=== PATIENT | male | born 1955 | race Caucasian/White ===

== ENCOUNTER → 2016-07-06 | Outpatient (CLI) | payer OTHER ==
[~2016-07-06] MED LIST: COREG CR80 MG PO; DILTIAZEM 24HR240 MG PO; ECOTRIN81 MG PO; FLOMAX0.4 MG PO; FLOVENT DISKUS50 MCG INH; FOLIC ACID0.4 MG PO; LOSARTAN-HCTZ1 EACH PO; METFORMIN HCL1000 MG PO; OMEPRAZOLE40 MG PO; PERCOCET 5-3251 EACH PO; PLAQUENIL 200200 MG PO; PRAVASTATIN SOD80 MG PO; PREDNISONE5 MG PO; TYLENOL EXTRA500 MG PO; VITAMIN D2000 UNI1 PO
== END ==
LOC: HEART 5 13:22
DX: R00.1 Bradycardia, unspecified (principal); I10 Essential (primary) hypertension

== ENCOUNTER → 2020-08-02 | Outpatient (CLI) | payer MEDICARE, OTHER ==
[~2020-08-02] MED LIST changes: +ACTOS30 MG PO; +CENTRUM SILVER1 EAC1 PO; +COZAAR 25MG TAB25 MG PO; -DILTIAZEM 24HR240 MG PO; +DILTIAZEM 24HR360 MG PO; +HYDROCHLOROTH12.5 M1 PO; +LASIX40 MG PO; +NEXIUM20 MG PO; +POTASSIUM CHLO20 ME1 PO; +VITAMIN B-121000 MCG PO; +ZYLOPRIM 100 M100 MG PO
== END ==
LOC: EXRD 08:38
DX: I10 Essential (primary) hypertension (principal); E11.9 Type 2 diabetes mellitus without complications; E78.00 Pure hypercholesterolemia, unspecified; I63.81 Other cerebral infarction due to occlusion or stenosis of small artery; R29.818 Other symptoms and signs involving the nervous system; R90.82 White matter disease, unspecified; I65.23 Occlusion and stenosis of bilateral carotid arteries
CPT/HCPCS: 93880

== ENCOUNTER → 2020-08-29 | Outpatient (CLI) | payer MEDICARE | LOC: HEART 5 08-19 11:00 | DX: I11.9 Hypertensive heart disease without heart failure (principal); R93.1 Abnormal findings on diagnostic imaging of heart and coronary circulation; I08.3 Combined rheumatic disorders of mitral, aortic and tricuspid valves | CPT/HCPCS: 93306 ==

== ENCOUNTER → 2020-11-18 | Outpatient (CLI) | payer MEDICARE, OTHER | LOC: US 10:26 | DX: D64.9 Anemia, unspecified (principal) | CPT/HCPCS: 76882 ==

== ENCOUNTER → 2020-12-25 | Outpatient (CLI) | payer MEDICARE, OTHER | LOC: EXRD 14:30 | DX: M25.562 Pain in left knee (principal); M25.561 Pain in right knee; M19.90 Unspecified osteoarthritis, unspecified site; R93.6 Abnormal findings on diagnostic imaging of limbs | CPT/HCPCS: 73564 ==

== ENCOUNTER → 2021-02-03 | Outpatient (CLI) | payer MEDICARE, OTHER | LOC: HEART 5 07:30 | DX: Z01.810 Encounter for preprocedural cardiovascular examination (principal); R94.39 Abnormal result of other cardiovascular function study | CPT/HCPCS: 78452; A9502; J2785 ==

== ENCOUNTER → 2021-03-03 | Outpatient (CLI) | payer MEDICARE, OTHER ==
[2021-03-03 13:03] LABS: HEMOGLOBIN 13.6 gm/dl (14.0-17.5); RED BLOOD COUNT 4.24 M/UL (4.20-5.50); WHITE BLOOD COUNT 12.1 K/UL (4.5-11.0)
== END ==
LOC: LAB 11:34
PROVIDERS: Nurse Practitioner
DX: N18.31 Chronic kidney disease, stage 3a (principal)
CPT/HCPCS: 36415; 80069; 82570; 83970; 84156; 85027

== ENCOUNTER → 2021-09-10 | Day surgery (SDC) | payer MEDICARE, OTHER ==
[~2021-09-10] MED LIST changes: +ATORVASTATIN CA40 MG PO; +CONSTULOSE10 GM/15 M PO; +LINZESS145 MCG PO; +PLAQUENIL200 MG PO; +SPIRONOLACTONE25 MG PO; +VITAMIN B-121000 MC2 PO; +[UNRECOGNIZED DRUG - OTHER] PO
== END | disposition home or self-care (01) ==
LOC: OR 06:57
DX: K31.9 Disease of stomach and duodenum, unspecified (principal); K21.00 Gastro-esophageal reflux disease with esophagitis, without bleeding; K29.60 Other gastritis without bleeding; K25.9 Gastric ulcer, unspecified as acute or chronic, without hemorrhage or perforation; K59.09 Other constipation; E66.01 Morbid (severe) obesity due to excess calories; I10 Essential (primary) hypertension; E11.9 Type 2 diabetes mellitus without complications; Z68.41 Body mass index [BMI] 40.0-44.9, adult; Z88.5 Allergy status to narcotic agent; Z88.2 Allergy status to sulfonamides; Z88.8 Allergy status to other drugs, medicaments and biological substances; Z79.82 Long term (current) use of aspirin
CPT/HCPCS: 82962; J2704; J7040